=== PATIENT | female | born 1940 | race Native Hawaiian/Other Pacific Islander ===

== ENCOUNTER 2018-04-08 19:31 | Emergency (ER) | payer OTHER ==
[~2018-04-08] VITALS: Ht 162.6 cm; Wt 76.7 kg
[2018-04-08 19:25] VITALS: BP 159/62; TEMP 97.9
[2018-04-08 19:47] LABS: PLATELET COUNT 340 K/uL (152-353)
[2018-04-08 19:54] LABS: POTASSIUM 3.7 mmol/L (3.6-5.2)
[2018-04-08] MEDS ORDERED: LEVO-T125 MCG PO (23:35)
[2018-04-08] MEDS ORDERED: TGT OMEPRAZOLE20 MG PO (23:36)
[2018-04-08] MEDS ORDERED: DILTIAZEM HCL240 M2 PO (23:37)
[2018-04-08] MEDS ORDERED: ESCITALOPRAM10 MG PO (23:38)
[2018-04-08] MEDS ORDERED: KP FOLIC ACID1 MG PO (23:39)
[2018-04-08] MEDS ORDERED: MOBIC7.5 M1 PO (23:39)
[2018-04-08] MEDS ORDERED: OYSTER SHELL CA1 TA6 PO (23:41)
[2018-04-08] MEDS ORDERED: DOCU100C10 PO (23:41)
[2018-04-08] MEDS ORDERED: BUSPIRONE5 MG PO (23:42)
[2018-04-08] MEDS ORDERED: LISI10TA11 PO (23:42)
[2018-04-08] MEDS ORDERED: MIRTAZAPINE7.5 MG PO (23:43)
[2018-04-08] MEDS ORDERED: MECLIZINE25 M1 PO (23:45)
[2018-04-08] MEDS ORDERED: VITAMIN B-12100 MC1 PO (23:47)
[2018-04-25] MEDS ORDERED: NAC 600 PO (11:47)
[2018-04-25] MEDS ORDERED: HYDROXYZ HCL50 MG PO (11:47)
[2018-04-25] MEDS ORDERED: MEMA5TAB PO (11:47)
[2018-04-25] MEDS ORDERED: RISP0.25 PO ×2 (11:48)
[2018-04-25] MEDS ORDERED: RISP1TAB PO (11:48)
[2018-04-25] MEDS ORDERED: BUSP15TAB2 PO (11:48)
[2018-04-25] MEDS ORDERED: DONE5TAB PO (11:48)
[2018-04-25] MEDS ORDERED: ESCI10TA PO (11:48)
[2018-04-25] MEDS ORDERED: LEVO0.1T6 PO (11:48)
== END 2018-04-08 20:50 | disposition other institution (70) ==
LOC: ED 19:31
DX: F20.89 Other schizophrenia (principal); Z04.6 Encounter for general psychiatric examination, requested by authority
CPT/HCPCS: 36415; 80053; 81000; 85027; 93005; 99285